=== PATIENT | female | born 1960 | race Asian ===

== ENCOUNTER 2018-07-28 22:09 | Emergency (ER) | payer OTHER ==
[~2018-07-28] VITALS: Wt 54.2 kg
[2018-07-29] MEDS ORDERED: BRINZOLAMIDE 1% 10ML OPH LEFT EYE ONE (01:30)
[2018-07-29] MEDS ORDERED: PILOCARPINE 4% 15ML OPH LEFT EYE ONE (01:30)
[2018-07-29] MEDS ORDERED: TIMOLOL 0.5% 5 ML OPH LEFT EYE ONE (01:30)
--- NOTE | 2018-07-29 01:33 | EN ---
Date/Time of Note Date/Time of Note DATE: 07/29/18 TIME: 01:32 ER Progress Note I performed the Evangelist-Pen exam on this patient to check the intraocular pressure of the right eye. Evangelist-Pen readings were elevated at 48, 40 and 48. OCTAVIO OCAMPO PA-C Jul 29, 2018 01:33
[2018-07-29] MEDS ORDERED: ACETAZOLAMIDE 500 MG INJ IV ONE (02:00)
[2018-07-29] MEDS ORDERED: APRACLONIDINE 1% 0.1 ML OPH LEFT EYE ONE (02:00)
[2018-07-29] MEDS ORDERED: ONDANSETRON 4 MG INJ IV STA (03:07)
[2018-07-29] MEDS ORDERED: morphine 4 MG/ML VIAL IV STA (03:07)
--- NOTE | 2018-07-29 03:18 | ERD ---
ER Documentation Chief Complaint Chief Complaint BILAT EYE PAIN AND SWELLING X'S 1 DAY HPI This is a 58-year-old female initially complains of bilateral eye pain swelling from the past day. Denies any fevers or chills. Upon further questioning states that only her right eye is acutely painful. She said it is moderate to severe pain. No trauma. History of glaucoma in the past. No other current issues. ROS All systems reviewed and are negative except as per history of present illness. Allergies Allergies: Coded Allergies: No Known Allergy (Unverified , 07/29/18) PMhx/Soc Medical and Surgical Hx: pt denies Medical Hx, pt denies Surgical Hx Hx Cardiac Disorders: Yes (htn) Hx Miscellaneous Medical Probl: Yes (DM) Hx Alcohol Use: No Hx Substance Use: No Hx Tobacco Use: No Smoking Status: Never smoker Physical Exam Vitals Vital Signs Date Temp Pulse Resp B/P (MAP) Pulse Ox O2 O2 Flow FiO2 Time Delivery Rate 07/29/18 98.3 55 14 144/80 Room Air 01:52 (101) 07/28/18 98.4 63 18 127/75 100 22:11 (92) Physical Exam Const: No acute distress Head: Atraumatic Eyes: Normal Conjunctiva ENT: Normal External Ears, Nose and Mouth. Neck: Full range of motion. No meningismus. Resp: Clear to auscultation bilaterally Cardio: Regular rate and rhythm, no murmurs Abd: Soft, non tender, non distended. Normal bowel sounds Skin: No petechiae or rashes Back: No midline or flank tenderness Ext: No cyanosis, or edema Neur: Awake and alert Psych: Normal Mood and Affect Result Diagram: 07/29/1822407/29/18224 Results 24 hrs Laboratory Tests Test 07/29/18 02:25 White Blood Count 7.6 10^3/ul Red Blood Count 4.62 10^6/ul Hemoglobin 13.6 g/dl Hematocrit 41.7 % Mean Corpuscular Volume 90.3 fl Mean Corpuscular Hemoglobin 29.4 pg Mean Corpuscular Hemoglobin Concent 32.6 g/dl Red Cell Distribution Width 12.2 % Platelet Count 275 10^3/UL Mean Platelet Volume 9.4 fl Immature Granulocytes % 0.300 % Neutrophils % 61.1 % Lymphocytes % 30.9 % Monocytes % 6.6 % Eosinophils % 0.8 % Basophils % 0.3 % Nucleated Red Blood Cells % 0.0 /100WBC Immature Granulocytes # 0.020 10^3/ul Neutrophils # 4.7 10^3/ul Lymphocytes # 2.4 10^3/ul Monocytes # 0.5 10^3/ul Eosinophils # 0.1 10^3/ul Basophils # 0.0 10^3/ul Nucleated Red Blood Cells # 0.0 10^3/ul Prothrombin Time 11.9 Sec Prothrombin Time Ratio 0.9 INR International Normalized Ratio 0.87 Activated Partial Thromboplast Time 27.6 Sec Sodium Level 142 mmol/L Potassium Level 4.1 mmol/L Chloride Level 102 mmol/L Carbon Dioxide Level 28 mmol/L Anion Gap 12 Blood Urea Nitrogen 14 mg/dl Creatinine 0.61 mg/dl Est Glomerular Filtrat Rate mL/min > 60 mL/min Glucose Level 136 mg/dl Calcium Level 9.4 mg/dl Total Bilirubin 0.6 mg/dl Direct Bilirubin 0.00 mg/dl Indirect Bilirubin 0.6 mg/dl Aspartate Amino Transf (AST/SGOT) 25 IU/L Alanine Aminotransferase (ALT/SGPT) 21 IU/L Alkaline Phosphatase 63 IU/L Total Protein 7.7 g/dl Albumin 4.5 g/dl Globulin 3.20 g/dl Albumin/Globulin Ratio 1.40 Lipase 157 U/L Current Medications Medications Dose Sig/Chicho Start Time Status Last (Trade) Ordered Route PRN Stop Time Admin Dose Reason Admin Pilocarpine 1 drop ONCE ONCE 07/29/18 DC 07/29/18 HCl (Isopto LEFT EYE 01:30 02:39 Carpine 4% 07/29/18 01:36 Oph) 1 drop ONCE ONCE 07/29/18 DC Brinzolamide LEFT EYE 01:30 (Azopt) 07/29/18 01:38 Timolol 1 drop ONCE ONCE 07/29/18 DC 07/29/18 Maleate LEFT EYE 01:30 02:38 (Timoptic 07/29/18 01:36 0.5%) 1 drop ONCE ONCE 07/29/18 DC 07/29/18 Apraclonidine LEFT EYE 02:00 02:38 HCl 07/29/18 02:01 (Iopidine 1% Oph) 500 mg ONCE ONCE 07/29/18 DC 07/29/18 Acetazolamide IV 02:00 02:38 (Diamox) 07/29/18 02:01 Morphine 4 mg ONCE STAT 07/29/18 DC Sulfate IV 03:07 (morphine) 07/29/18 03:08 Ondansetron 4 mg ONCE STAT 07/29/18 DC HCl (Zofran IV 03:07 Inj) 07/29/18 03:08 Procedures/MDM Patient was Evangelist-Pen by the PA. Readings of 4840 and 42 were recorded. These were corroborated by my own measurements in the 42-44 range. Immediately intravenous access was established. She was given a carbonic anhydrase inhibitor along with topical after clonidine, atenolol. At this point patient is pending transfer for higher level of care. Currently there are no beds available. Departure Diagnosis: Primary Impression: Acute angle-closure glaucoma Laterality: unspecified laterality Qualified Codes: H40.219 - Acute angle- closure glaucoma, unspecified eye Condition: Stable WINSTON OROZCO Jul 29, 2018 03:18
[2018-07-29] MEDS ORDERED: TETRACAINE 0.5% 4 ML OPH BOTH EYES ONE (09:00)
[2018-07-29] MEDS ORDERED: DORZOLAMIDE/TIMOLOL/PF 0.2 ML DROPERETTE BOTH EYES ONE (09:30)
[2018-07-29] MEDS ORDERED: BRIMONIDINE 0.2% 5 ML BTL BOTH EYES ONE (09:30)
[2018-07-29 11:08] VITALS: BP 105/70; PULSE 64; RESP 18
== END 2018-07-29 11:15 | disposition home or self-care (01) ==
LOC: FTE 22:09 → E/R 07-29 11:15
DX: H40.219 Acute angle-closure glaucoma, unspecified eye (principal); I10 Essential (primary) hypertension; E11.9 Type 2 diabetes mellitus without complications
CPT/HCPCS: 36415; 80053; 83690; 85025; 85610; 85730; 96374; 96375; 99284; J1120; J2270; J2405